=== PATIENT | female | born 1945 | race Caucasian/White ===

== ENCOUNTER 2017-10-30 09:00 | Outpatient (RCR) | payer MEDICARE, OTHER ==
[~2017-10-30 09:00] MED LIST: ATORVASTATIN CA10 MG PO; CELEBREX100 MG PO; GUAIFENESIN600 M1 PO; METFORMIN HCL500 MG PO; NORCO 5-325 TA1 EACH PO; PROPRANOLOL PO; TESSALON PERLE100 M1 PO; Z PROPAFENONE PO; Z.0.ALBUTEROL SULF8. IH; Z.0.GABAPENTIN100 MG PO; Z.0.NEXIUM40 MG PO; Z.0.ZIPSOR25 MG PO; [UNRECOGNIZED DRUG - OTHER] PO
== END 2017-11-04 ==
LOC: PT 09:00
PROVIDERS: ATTEND Physical Medicine & Rehabilitation Pain Medicine
DX: M54.16 Radiculopathy, lumbar region (principal); M25.551 Pain in right hip; M25.651 Stiffness of right hip, not elsewhere classified; R29.6 Repeated falls; R26.2 Difficulty in walking, not elsewhere classified
CPT/HCPCS: 97110 ×9; 97139; 97140 ×2; 97162; 97530; G8981 ×2; G8982 ×2

== ENCOUNTER 2017-12-04 09:00 | Outpatient (RCR) | payer MEDICARE, OTHER | END 2017-12-05 | LOC: PT 09:00 | PROVIDERS: ATTEND Physical Medicine & Rehabilitation Pain Medicine | DX: M54.16 Radiculopathy, lumbar region (principal); M25.651 Stiffness of right hip, not elsewhere classified; M62.81 Muscle weakness (generalized) | CPT/HCPCS: 97110 ×8; 97140 ×6; G8981; G8982 ==

== ENCOUNTER 2017-12-27 08:00 | Outpatient (RCR) | payer MEDICARE, OTHER | END 2018-01-04 | LOC: PT 08:00 → EEVIPCON 08:00 | PROVIDERS: ATTEND Physical Medicine & Rehabilitation Pain Medicine | DX: M54.16 Radiculopathy, lumbar region (principal); M25.651 Stiffness of right hip, not elsewhere classified; M62.81 Muscle weakness (generalized) | CPT/HCPCS: 97010; 97110 ×7; 97139; 97140 ×5; G8982; G8983 ==

== ENCOUNTER → 2018-02-27 | Day surgery (SDC) | payer MEDICARE, OTHER ==
[~2018-02-27] MED LIST changes: +ASPIR 8181 MG PO; +BUPIVACAINE 0.25% 30ML SDV INJ ONE; +INSULIN REGULAR, HUMAN 100 UNIT/1 ML 3ML VIAL ONE; +INVOKANA PO; +IOPAMIDOL 200 MG/ML 20 ML VIAL IT ONE; +LIDOCAINE HCL 2% LOCAL INJ 5 ML SDV VIAL INJ ONE; +MIDAZOLAM HCL 2 MG/2 ML VIAL ONE; +PROPOFOL IV EMULSION 10 MG/ML 20 ML VIAL ONE; +TRIAMCINOLONE ACET 40 MG/ML VIAL ONE
--- OUTSIDE RECORDS SUMMARY | 2018-04-10 05:46 | XMS REPORT | Continuity of Care Document ---
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 [address] Email [email or web address] [email or web address] Medicare A & B Policy Number [id number] Subscriber's Name Sumaya Hernandez Relationship 18 Self / Same As Patient [facility] Effective Date 06 Payer Miscellaneous Ppo Policy Number [id number] Subscriber's Name Sumaya Hernandez Relationship 18 Self / Same As Patient Group Number PLAN G Advance Directives Directive Response Recorded Date/Time Does the patient have an advance directive? Yes 10/07/17 9:52am If yes, is advance directive on file with [facility]? No 04/09/07 2:51pm If not on file with [facility] will patient provide a copy? No 02/15/11 10:25am Do you have a Directive to Physician? Yes 12/06/17 9:49am Do you have a Medical Power of Transit Planning Manager? Yes 12/06/17 9:49am Do you have an out of hospital Do Not Resuscitate Order? No 12/06/17 9:49am Do you have any special needs we should be aware of? No 12/06/17 9:49am Do you have a support person here with you today? No 12/06/17 9:49am Did patient receive Notice of Privacy Practices? No 12/06/17 9:49am Did patient receive patient rights and responsibilities? No 12/06/17 9:49am Problems No problem information available. Medications Current Home Medications Medication Dose Units Route Directions Days Qty Instructions Start Date Atorvastatin Calcium 10 Mg Tablet 10 Mg Oral Bedtime 30 Tab Celecoxib (Celebrex*) 100 Mg Capsule 100 Mg Oral Daily 30 Cap Gabapentin 100 Mg Capsule 100 Mg Oral Twice A Day Hydrocodone Bit/Acetaminophen ([place] 5-325 Tablet) 1 Each Tablet 5 Mg Oral As Needed Metformin Hcl 500 Mg Tablet 500 Mg Oral Twice A Day 60 Tab Propafenone Hcl 225 Mg Tablet 225 Mg Oral Twice A Day Propranolol Hcl 160 Mg Cap.sa.24h 160 Mg Oral Daily Past Home Medications Medication Directions Ordered Status Albuterol Sulfate (Albuterol Sulfate Hfa) 8.5 Gm Hfa.aer.ad, 8.5 Gm Inhalation Every 6 Hours Discontinued Benzonatate (Tessalon Perles) 100 Mg Cap, Oral Three Times A Day Discontinued Clarithromycin (Biaxin) 500 Mg Tablet, 500 Mg Oral Twice A Day Discontinued Diclofenac Potassium (Zipsor) 25 Mg Capsule, 25 Mg Oral Every 12 Hours Discontinued Esomeprazole Mag Trihydrate (Nexium) 40 Mg Capsule.dr, 40 Mg Oral Twice A Day Discontinued Guaifenesin 600 Mg Tablet.er, 1200 Oral Twice A Day Discontinued Social History Social History Problem Response Recorded Date/Time Onset Date Status Hx Psychiatric Problems No 02/09/2012 12:53am Not Applicable Not Applicable Hospital Discharge Instructions No hospital discharge instruction information available. Plan of Care Prescriptions See Medication Section Functional Status No functional status information available. Allergies, Adverse Reactions, Alerts Allergen Type Severity Reaction Status Last Updated No Known Drug Allergies Allergy Unknown Active 05/12/10 Immunizations No immunization information available. Vital Signs No vital sign information available. Results No relevant diagnostic test, laboratory data and/or discharge summary information available. Procedures No procedure information available. Encounters Encounter Location Arrival/Admit Date Discharge/Depart Date Attending Provider Discharged [facility] 12/27/17 8:00am 01/04/18 11:59pm LONG TUCKER MD Discharged [facility] 11/06/17 9:13am 12/05/17 11:59pm LONG TUCKER MD Discharged [facility] 10/07/17 9:55am 11/04/17 11:59pm LONG TUCKER MD
== END | disposition home or self-care (01) ==
LOC: OR 05:41 → MERGE 05:41
PROVIDERS: ATTEND Physical Medicine & Rehabilitation Pain Medicine
DX: M46.1 Sacroiliitis, not elsewhere classified (principal); G57.02 Lesion of sciatic nerve, left lower limb; M47.26 Other spondylosis with radiculopathy, lumbar region; M25.552 Pain in left hip; R20.2 Paresthesia of skin; G62.9 Polyneuropathy, unspecified; Z98.1 Arthrodesis status; R03.0 Elevated blood-pressure reading, without diagnosis of hypertension; E11.9 Type 2 diabetes mellitus without complications; E78.00 Pure hypercholesterolemia, unspecified; Z79.82 Long term (current) use of aspirin; Z79.84 Long term (current) use of oral hypoglycemic drugs; Z91.81 History of falling
CPT/HCPCS: 20552; G0260; 36415; 77002; 82948; J2001; J2250; J3301; Q9967

== ENCOUNTER → 2019-03-10 | Outpatient (CLI) | payer MEDICARE, OTHER ==
[~2019-03-10] MED LIST changes: -BUPIVACAINE 0.25% 30ML SDV INJ ONE; -INSULIN REGULAR, HUMAN 100 UNIT/1 ML 3ML VIAL ONE; -IOPAMIDOL 200 MG/ML 20 ML VIAL IT ONE; -LIDOCAINE HCL 2% LOCAL INJ 5 ML SDV VIAL INJ ONE; -MIDAZOLAM HCL 2 MG/2 ML VIAL ONE; -PROPOFOL IV EMULSION 10 MG/ML 20 ML VIAL ONE; -TRIAMCINOLONE ACET 40 MG/ML VIAL ONE
--- NOTE | 2019-03-18 09:14 | Diagnostic Imaging Report ---
#[id number] - [id number] #BILATERAL DIGITAL SCREENING MAMMOGRAM WITH CAD: 03/10/2019 CLINICAL: Routine screening. Comparison is made to exams dated: 08/17/2013 mammogram and 04/08/2012 mammogram - [facility] [place]. Current study contains 5 films. There are scattered fibroglandular elements in both breasts. Current study was also evaluated with a Computer Aided Detection (CAD) system. There are benign vascular calcifications in both breasts. Benign appearing calcifications are noted bilaterally. Left breast post lumpectomy changes are present. A clip is noted in the right breast. No significant masses, calcifications, or other findings are seen in either breast. IMPRESSION: BENIGN There is no mammographic evidence of malignancy. A 1 year screening mammogram is recommended. The patient will be notified by letter of the results. JENNIE ARAYA M.D. ct/penrad:03/17/2019 16:58:28 Web Machine Tender: Aliza MIXON(Jeremy)(Barbara), [facility] letter sent: Normal Exam Mammogram BI-RADS: 2 Benign
== END ==
LOC: MAMMO 08:38
PROVIDERS: ATTEND Internal Medicine
DX: Z12.31 Encounter for screening mammogram for malignant neoplasm of breast (principal)
CPT/HCPCS: 77067

== ENCOUNTER 2021-02-01 16:34 | Emergency (ER) | payer MEDICARE, OTHER ==
[~2021-02-01] VITALS: Ht 165.1 cm; Wt 76.8 kg
[2021-02-01] MEDS: ONDANSETRON HCL INJ 2MG/ML 2ML 2 MG/ML VIAL IV ONE (18:20)
[2021-02-01] MEDS: SODIUM CHLORIDE 0.9% 1000ML 1,000 ML IV STA (18:20)
[2021-02-01] MEDS: MORPHINE SULFATE INJ 4 MG/ML INJ 1ML IV STA (18:20)
[2021-02-01] MEDS: FAMOTIDINE 20 MG/2 ML VIAL IV ONE (18:20)
[2021-02-01] MEDS: KETOROLAC TROMETHAMINE 30 MG/ML VIAL IV ONE (18:20)
[2021-02-01] MEDS ORDERED: SODIUM CHLORIDE 0.9% 1000ML 1,000 ML ONE (18:21)
[2021-02-01] MEDS ORDERED: ONDANSETRON HCL INJ 2MG/ML 2ML 2 MG/ML VIAL ONE (18:21)
[2021-02-01] MEDS ORDERED: KETOROLAC TROMETHAMINE 30 MG/ML VIAL ONE (18:21)
[2021-02-01] MEDS ORDERED: FAMOTIDINE 20 MG/2 ML VIAL IV ONE (18:21)
[2021-02-01] MEDS ORDERED: MORPHINE SULFATE INJ 4 MG/ML INJ 1ML ONE (18:22)
[2021-02-01] MEDS ORDERED: SODIUM CHLORIDE 0.9% 50ML 50 ML ONE (18:29)
[2021-02-01] MEDS ORDERED: IOPAMIDOL 370 MG/ML 200 ML INFUS..BTL INJ ONE (18:29)
[2021-02-01] MEDS ORDERED: JARDIANCE25 MG (19:06)
[2021-02-01] MEDS ORDERED: MYRBETRIQ25 MG (19:06)
[2021-02-01] MEDS ORDERED: BACTRIM DS TAB1 EACH PO (19:06)
[2021-02-01] MEDS ORDERED: VESICARE5 MG PO (19:06)
[2021-02-01] MEDS ORDERED: ONDANSETRON ODT4 MG PO (20:11)
[2021-02-01] MEDS ORDERED: OMEPRAZOLE40 MG PO (20:11)
[2021-02-01] MEDS ORDERED: ULTRAM 50MG50 MG PO (20:11)
== END 2021-02-01 21:30 | disposition home or self-care (01) ==
LOC: FSED 16:41
DX: R10.11 Right upper quadrant pain (principal); R11.0 Nausea; K82.9 Disease of gallbladder, unspecified; N20.0 Calculus of kidney; R16.1 Splenomegaly, not elsewhere classified; I10 Essential (primary) hypertension; E11.9 Type 2 diabetes mellitus without complications
CPT/HCPCS: 36415; 74177; 76705; 80048; 80076; 81003; 83690; 85025; 96374; 96375; 99284; J1885; J2270; J2405; J7030; Q9967

== ENCOUNTER → 2021-02-08 | Outpatient (CLI) | payer MEDICARE, OTHER ==
[~2021-02-08] MED LIST changes: +BACTRIM DS TAB1 EACH PO; +JARDIANCE25 MG; +MYRBETRIQ25 MG; +OMEPRAZOLE40 MG PO; +ONDANSETRON ODT4 MG PO; +ULTRAM 50MG50 MG PO; +VESICARE5 MG PO
== END ==
LOC: NM 11:16
PROVIDERS: ATTEND Internal Medicine
DX: R10.10 Upper abdominal pain, unspecified (principal)
CPT/HCPCS: 78227; A9537

== ENCOUNTER → 2021-02-15 | Outpatient (CLI) | payer MEDICARE, OTHER | LOC: NM 11:33 | PROVIDERS: ATTEND Internal Medicine | DX: R10.11 Right upper quadrant pain (principal) | CPT/HCPCS: 78227; A9537 ==

== ENCOUNTER → 2021-06-15 | Day surgery (SDC) | payer MEDICARE, OTHER ==
[2021-06-13 13:06] LABS: BASOPHILS % 0.2 % (0.0-1.0); EOSINOPHILS # (AUTO) 0.1 (0.0-0.4); EOSINOPHILS % 1.3 % (0.0-6.0); HEMATOCRIT 42.1 % (34.2-44.1); MEAN CORPUSCULAR HEMOGLOBIN 28.9 pg (28-32); MEAN CORPUSCULAR HGB CONC 33.3 g/dL (31-35); MONOCYTES # (AUTO) 0.5 (0.2-0.8); MONOCYTES % 6.3 % (4.4-11.3); NEUTROPHILS # (AUTO) 5.7 (2.1-6.9); PLATELET COUNT 153 x10e3/uL (140-360); RED BLOOD COUNT 4.84 x10e6/uL (3.6-5.1); RED CELL DISTRIBUTION WIDTH 14.1 % (11.7-14.4)
[~2021-06-15] MED LIST changes: +FENTANYL CITRATE/PF 100MCG/2 ML INJ ONE; +IOPAMIDOL 200 MG/ML 20 ML VIAL IT ONE; +LEXAPRO10 MG PO; +LIDOCAINE HCL 1% 30ML-PF VIAL ONE; +LIDOCAINE HCL 2% LOCAL INJ 5 ML SDV VIAL INJ ONE; +MIDAZOLAM HCL 2 MG/2 ML VIAL ONE; +POVIDONE IODINE 0.05% 0.05 % ML PO ONE; +PROPOFOL IV EMULSION 10 MG/ML 20 ML VIAL ONE; +TRIAMCINOLONE ACET 40 MG/ML VIAL ONE
[2021-06-15 08:52] VITALS: BP 111/62
== END | disposition home or self-care (01) ==
LOC: OR 06:30
PROVIDERS: ATTEND Physical Medicine & Rehabilitation Pain Medicine
DX: M16.11 Unilateral primary osteoarthritis, right hip (principal); M47.896 Other spondylosis, lumbar region; M46.1 Sacroiliitis, not elsewhere classified; M54.16 Radiculopathy, lumbar region; R20.2 Paresthesia of skin; G62.9 Polyneuropathy, unspecified; I34.1 Nonrheumatic mitral (valve) prolapse; E78.5 Hyperlipidemia, unspecified; E11.9 Type 2 diabetes mellitus without complications; K21.9 Gastro-esophageal reflux disease without esophagitis; F32.A Depression, unspecified; Z01.810 Encounter for preprocedural cardiovascular examination; Z01.812 Encounter for preprocedural laboratory examination; Z20.822 Contact with and (suspected) exposure to COVID-19; Z79.82 Long term (current) use of aspirin; Z79.84 Long term (current) use of oral hypoglycemic drugs; Z79.899 Other long term (current) drug therapy; Z98.1 Arthrodesis status; Z91.81 History of falling
CPT/HCPCS: 20610; 36415 ×2; 77002; 82948; 85025; 93005; J2001 ×2; J2250; J2704; J3010; J3301; Q9967; U0002; 77003

== ENCOUNTER 2021-09-12 11:56 | Emergency (ER) | payer MEDICARE, OTHER ==
[~2021-09-12] VITALS: Ht 165.1 cm; Wt 76.7 kg
[~2021-09-12 11:56] MED LIST changes: -FENTANYL CITRATE/PF 100MCG/2 ML INJ ONE; +GEMTESA75 MG; -IOPAMIDOL 200 MG/ML 20 ML VIAL IT ONE; -LIDOCAINE HCL 1% 30ML-PF VIAL ONE; -LIDOCAINE HCL 2% LOCAL INJ 5 ML SDV VIAL INJ ONE; -MIDAZOLAM HCL 2 MG/2 ML VIAL ONE; -POVIDONE IODINE 0.05% 0.05 % ML PO ONE; -PROPOFOL IV EMULSION 10 MG/ML 20 ML VIAL ONE; -TRIAMCINOLONE ACET 40 MG/ML VIAL ONE
[2021-09-12] MEDS ORDERED: TETANUS/DIPHTHERIA TOX ADULT 0.5 ML SYR IM ONE (12:00)
[2021-09-12] MEDS ORDERED: ACETAMINOPHEN 325 MG TAB PO ONE (12:15)
== END 2021-09-12 14:09 | disposition home or self-care (01) ==
LOC: ER 11:59
DX: S80.02XA Contusion of left knee, initial encounter (principal); M54.2 Cervicalgia; W01.0XXA Fall on same level from slipping, tripping and stumbling without subsequent striking against object, initial encounter; Y93.01 Activity, walking, marching and hiking; Y92.238 Other place in hospital as the place of occurrence of the external cause; I10 Essential (primary) hypertension; E11.9 Type 2 diabetes mellitus without complications; E78.5 Hyperlipidemia, unspecified; I25.10 Atherosclerotic heart disease of native coronary artery without angina pectoris; M54.9 Dorsalgia, unspecified; G89.29 Other chronic pain
CPT/HCPCS: 70450; 72125; 90471; 90714; 99283

== ENCOUNTER → 2021-09-14 | Day surgery (SDC) | payer MEDICARE, OTHER ==
[2021-09-12 15:07] LABS: BASOPHILS % 0.1 % (0.0-1.0); EOSINOPHILS # (AUTO) 0.1 (0.0-0.4); EOSINOPHILS % 1.1 % (0.0-6.0); HEMATOCRIT 41.9 % (34.2-44.1); HEMOGLOBIN 14.5 g/dL (12.0-16.0); LYMPHOCYTES # (AUTO) 2.1 (1.0-3.2); LYMPHOCYTES % 26.2 % (18.0-39.1); MEAN CORPUSCULAR HEMOGLOBIN 29.8 pg (28-32); MEAN CORPUSCULAR HGB CONC 34.6 g/dL (31-35); MONOCYTES # (AUTO) 0.5 (0.2-0.8); MONOCYTES % 5.6 % (4.4-11.3); NEUTROPHILS # (AUTO) 5.3 (2.1-6.9); NEUTROPHILS % 66.6 % (38.7-80.0); PLATELET COUNT 155 x10e3/uL (140-360); RED BLOOD COUNT 4.87 x10e6/uL (3.6-5.1); RED CELL DISTRIBUTION WIDTH 13.1 % (11.7-14.4)
[~2021-09-14] MED LIST changes: +FENTANYL CITRATE/PF 100MCG/2 ML INJ ONE; +IOPAMIDOL 200 MG/ML 20 ML VIAL IT ONE; +LIDOCAINE HCL 1% 30ML-PF VIAL ONE; +LIDOCAINE HCL 2% LOCAL INJ 5 ML SDV VIAL INJ ONE; +MIDAZOLAM HCL 2 MG/2 ML VIAL ONE; +POVIDONE IODINE 0.05% 0.05 % ML PO ONE; +PROPOFOL IV EMULSION 10 MG/ML 20 ML VIAL ONE; +TRIAMCINOLONE ACET 40 MG/ML VIAL ONE
[2021-09-14 06:50] VITALS: BP 111/42
== END | disposition home or self-care (01) ==
LOC: OR 06:18
PROVIDERS: ATTEND Physical Medicine & Rehabilitation Pain Medicine
DX: M16.11 Unilateral primary osteoarthritis, right hip (principal); M70.61 Trochanteric bursitis, right hip; M47.896 Other spondylosis, lumbar region; M46.1 Sacroiliitis, not elsewhere classified; M54.16 Radiculopathy, lumbar region; G62.9 Polyneuropathy, unspecified; Z98.1 Arthrodesis status; E11.9 Type 2 diabetes mellitus without complications; K21.9 Gastro-esophageal reflux disease without esophagitis; N39.0 Urinary tract infection, site not specified; I34.1 Nonrheumatic mitral (valve) prolapse; I49.9 Cardiac arrhythmia, unspecified; Z01.812 Encounter for preprocedural laboratory examination; Z20.822 Contact with and (suspected) exposure to COVID-19; Z79.82 Long term (current) use of aspirin; Z79.84 Long term (current) use of oral hypoglycemic drugs; Z79.899 Other long term (current) drug therapy; Z91.81 History of falling
CPT/HCPCS: 20610; 36415 ×2; 77002; 82948; 85025; J2001 ×2; J2250; J2704; J3010; J3301; Q9967; U0002

== ENCOUNTER 2025-04-14 12:49 | Inpatient (IN) | payer MEDICARE ==
[~2025-04-14] VITALS: Ht 162.6 cm; Wt 81.6 kg
[~2025-04-14 12:49] MED LIST changes: +ASPIRIN EC81 MG PO; +FARXIGA5 MG; -FENTANYL CITRATE/PF 100MCG/2 ML INJ ONE; +FLOMAX0.4 MG PO; +GLIMEPIRIDE2 MG PO; +HYDROCODONE-AC118 M1 PO; +INSULIN GL100 UNIT/2 SC; +INSULIN PEN NE1 EAC1 SC; -IOPAMIDOL 200 MG/ML 20 ML VIAL IT ONE; +JARDIANCE10 MG PO; +LEXAPRO5 MG PO; -LIDOCAINE HCL 1% 30ML-PF VIAL ONE; -LIDOCAINE HCL 2% LOCAL INJ 5 ML SDV VIAL INJ ONE; -MIDAZOLAM HCL 2 MG/2 ML VIAL ONE; +NEURONTIN300 MG PO; -POVIDONE IODINE 0.05% 0.05 % ML PO ONE; -PROPOFOL IV EMULSION 10 MG/ML 20 ML VIAL ONE; +PROPRANOLOL HCL80 MG PO; +SENOKOT-S TABL1 EACH PO; -TRIAMCINOLONE ACET 40 MG/ML VIAL ONE
[2025-04-14] MEDS ORDERED: SODIUM CHLORIDE 0.9% 1000ML 1,000 ML IV SCH (13:30)
[2025-04-14] MEDS: KETOROLAC TROMETHAMINE 30 MG/ML VIAL IV STA (14:09)
[2025-04-14 14:23] LABS: BASOPHILS % 0.2 % (0.0-1.0); EOSINOPHILS % 2.2 % (0.0-6.0); LYMPHOCYTES % 25.1 % (18.0-39.1); MONOCYTES % 5.1 % (4.4-11.3); NEUTROPHILS % 67.0 % (38.7-80.0); RED CELL DISTRIBUTION WIDTH 13.1 % (11.7-14.4)
[2025-04-14 14:52] LABS: LEUKOCYTE ESTERASE ,URINE SMALL (NEGATIVE); PROTEIN,URINE DIPSTICK 2+ (NEGATIVE)
[2025-04-14 14:53] LABS: URINE UROBILINOGEN 0.2 mg/dL (0.2 - 1)
[2025-04-14 14:54] LABS: EST GLOMERULAR FILTRATION RATE 94.0 ML/MIN (>=60)
[2025-04-14] MEDS: ACETAMINOPHEN 325 MG TAB PO ONE (15:05)
[2025-04-14 15:06] VITALS: PULSE 82; RESP 18; O2SAT 98
[2025-04-14 15:49] LABS: EPITHELIAL CELLS,URINE MANY /LPF; WBC,URINE (MAN) 21-50 /HPF (0-5)
[2025-04-14 19:11] VITALS: PULSE 82; RESP 15; TEMP 98.6
[2025-04-14 20:00] VITALS: BP 132/86; PULSE 82; RESP 18; TEMP 98; O2SAT 97
[2025-04-14 21:15] VITALS: BP 132/86; PULSE 82; RESP 18; TEMP 98; O2SAT 97
[2025-04-14] MEDS: ACETAMINOPHEN 325 MG TAB PO PRN (22:24)
[2025-04-14] MEDS ORDERED: ONDANSETRON HCL INJ 2MG/ML 2ML 2 MG/ML VIAL IV PRN (23:45)
[2025-04-14] MEDS ORDERED: HYDRALAZINE HCL 20 MG/ML VIAL IV PRN (23:45)
[2025-04-15] VITALS (8 sets, daily range): BP systolic 123–164; BP diastolic 68–90; PULSE 79–92; RESP 18–19; TEMP 97.8–98.4; O2SAT 96–100
[2025-04-15] MEDS: SODIUM CHLORIDE 0.9% 1000ML 1,000 ML IV SCH (01:09)
[2025-04-15 05:25] LABS: BASOPHILS % 0.3 % (0.0-1.0); EOSINOPHILS % 2.2 % (0.0-6.0); LYMPHOCYTES % 31.4 % (18.0-39.1); MONOCYTES % 6.6 % (4.4-11.3); NEUTROPHILS % 59.2 % (38.7-80.0); RED CELL DISTRIBUTION WIDTH 13.0 % (11.7-14.4)
[2025-04-15 05:56] LABS: EST GLOMERULAR FILTRATION RATE 93.0 ML/MIN (>=60)
[2025-04-15] MEDS: HYDROCODONE/APAP 7.5MG-325MG 1 EA TAB PO PRN (08:00)
[2025-04-15] MEDS: ESCITALOPRAM OXALATE 10 MG TAB PO SCH (08:01)
[2025-04-15] MEDS: TAMSULOSIN HCL 0.4 MG CAP PO SCH (08:02)
[2025-04-15] MEDS: PANTOPRAZOLE SOD 40 MG TABEC PO SCH (08:02)
[2025-04-15] MEDS: SENNA-S TABLET PO SCH (08:03)
[2025-04-15] MEDS: ATORVASTATIN 10 MG TAB PO SCH (22:02)
[2025-04-15] MEDS: FLUCONAZOLE 100 MG TAB PO ONE (23:43)
[2025-04-16] VITALS (7 sets, daily range): BP systolic 133–158; BP diastolic 61–76; PULSE 79–91; RESP 18–20; TEMP 97.6–98.6; O2SAT 97–100
[2025-04-16] MEDS: FLUCONAZOLE 100 MG TAB PO SCH (09:18)
[2025-04-17 03:45] VITALS: BP 148/58; PULSE 91; RESP 20; TEMP 97.1; O2SAT 97
[2025-04-17 08:57] VITALS: BP 133/76; PULSE 109; RESP 20; TEMP 97.7; O2SAT 97
[2025-04-17 09:00] VITALS: BP 133/76; PULSE 109; RESP 20; TEMP 97.7; O2SAT 97
[2025-04-17 12:29] VITALS: BP 130/65; PULSE 90; RESP 20; TEMP 98.6; O2SAT 100
== END 2025-04-17 14:43 | disposition home or self-care (01) | DRG 698 ==
LOC: ER 12:59 → ERHOLD 14:47 → MED/SURG 21:10
PROVIDERS: ADMIT Internal Medicine; ATTEND Internal Medicine
DX: T83.511A Infection and inflammatory reaction due to indwelling urethral catheter, initial encounter (principal); G93.41 Metabolic encephalopathy; B37.49 Other urogenital candidiasis; F05 Delirium due to known physiological condition; N39.0 Urinary tract infection, site not specified; B96.89 Other specified bacterial agents as the cause of diseases classified elsewhere; R33.9 Retention of urine, unspecified; N31.9 Neuromuscular dysfunction of bladder, unspecified; I10 Essential (primary) hypertension; E78.5 Hyperlipidemia, unspecified; E11.9 Type 2 diabetes mellitus without complications; Z79.4 Long term (current) use of insulin; Z79.84 Long term (current) use of oral hypoglycemic drugs; G89.29 Other chronic pain; M54.50 Low back pain, unspecified; Z98.1 Arthrodesis status; Y84.6 Urinary catheterization as the cause of abnormal reaction of the patient, or of later complication, without mention of misadventure at the time of the procedure; Y92.009 Unspecified place in unspecified non-institutional (private) residence as the place of occurrence of the external cause; Z79.899 Other long term (current) drug therapy; Z79.82 Long term (current) use of aspirin
CPT/HCPCS: 36415; 70450; 71045; 80048; 80053; 81001; 82948; 83605; 84484; 85025; 87040; 87086; 93005; 94799; 99285; J1885; J2470; J2543; J7030